=== PATIENT | female | born 1990 | race Caucasian/White ===

== ENCOUNTER 2020-03-18 16:09 | Inpatient (IN) | payer OTHER ==
[~2020-03-18] VITALS: Ht 172.7 cm; Wt 89.4 kg
[2020-03-31] MEDS ORDERED: PRENATAL TABLE1 EACH PO (16:42)
== END 2020-04-03 13:26 | DRG 807 ==
LOC: LDR 03-24 13:30 → OB/GYN 03-31 15:53
PROVIDERS: ADMIT Obstetrics & Gynecology; ATTEND Obstetrics & Gynecology
PROC: 10E0XZZ Delivery of Products of Conception, External Approach (ICD-10-PCS; principal; 2020-04-01)
PROC: 0HQ9XZZ Repair Perineum Skin, External Approach (ICD-10-PCS; 2020-04-01)
PROC: 4A0HXFZ Measurement of Products of Conception, Cardiac Rhythm, External Approach (ICD-10-PCS; 2020-04-01)
DX: O70.0 First degree perineal laceration during delivery (principal); Z37.0 Single live birth; Z3A.41 41 weeks gestation of pregnancy

== ENCOUNTER 2022-12-19 09:05 | Outpatient (CLI) | payer OTHER ==
[~2022-12-19 09:05] MED LIST: PRENATAL TABLE1 EACH PO
== END 2022-12-19 09:14 | disposition home or self-care (01) ==
LOC: SONOGRAMA 09:05
PROVIDERS: ATTEND Internal Medicine Endocrinology, Diabetes & Metabolism
DX: E04.1 Nontoxic single thyroid nodule (principal)

== ENCOUNTER 2023-01-13 13:27 | Emergency (ER) | payer OTHER ==
[~2023-01-13] VITALS: Ht 172.7 cm; Wt 77.1 kg
== END 2023-01-13 14:32 | disposition home or self-care (01) ==
LOC: ER 13:27
DX: S61.210A Laceration without foreign body of right index finger without damage to nail, initial encounter (principal); W26.0XXA Contact with knife, initial encounter; Y93.9 Activity, unspecified; Y92.89 Other specified places as the place of occurrence of the external cause; Y99.9 Unspecified external cause status
CPT/HCPCS: 12002; 90471; 90714; J1670

== ENCOUNTER 2024-07-13 16:31 | Emergency (ER) | payer OTHER ==
[~2024-07-13] VITALS: Ht 172.7 cm; Wt 64.0 kg
[2024-07-13] MEDS ORDERED: IBU400 MG PO (18:41)
[2024-07-13] MEDS ORDERED: AMOXICILLIN500 MG PO (18:41)
== END 2024-07-13 18:54 | disposition home or self-care (01) ==
LOC: ER 16:32
DX: S91.132A Puncture wound without foreign body of left great toe without damage to nail, initial encounter (principal); X58.XXXA Exposure to other specified factors, initial encounter; Y93.9 Activity, unspecified; Y92.832 Beach as the place of occurrence of the external cause; Y99.9 Unspecified external cause status